=== PATIENT | female | born 1940 | race Caucasian/White ===

== ENCOUNTER 2017-05-01 10:02 | Inpatient (IN) | payer MEDICARE, OTHER ==
[~2017-05-01] VITALS: Ht 157.5 cm; Wt 59.6 kg
[~2017-05-01 10:02] MED LIST: ACTOS45 MG; ALLEGRA180 MG; ATORVASTATIN CA40 MG; AVISTA; CALCIUM500 MG; GLUMETZA1000 MG; HYDROCHLOROTHIA25 MG; KLOR-CON 1010 MEQ; LISINOPRIL20 MG; METOPROLOL SUC200 MG; NAPROXEN500 MG; OSCAL ULTRA; [UNRECOGNIZED DRUG - OTHER]
[2017-05-01] MEDS ORDERED: PANTOPRAZOLE 40 MG 10ML VIAL IV STA (10:18)
[2017-05-01] MEDS ORDERED: SODIUM CHLORIDE 0.9% 1000ML 500 ML IV STA (10:18)
[2017-05-01] MEDS ORDERED: ALBUTEROL SULF 0.083% NEB SOLN 3 ML NEB NEB STA (10:18)
[2017-05-01] MEDS ORDERED: DEXTROSE 5%/0.45% SOD CHL 1,000 ML IV STA (10:18)
[2017-05-01] MEDS ORDERED: IPRATROPIUM BROMIDE 0.02% 2.5 ML NEB NEB STA (10:18)
[2017-05-01] MEDS ORDERED: PIPER-TAZ 3.375 GM 50 ML IV STA (10:18)
[2017-05-01] MEDS ORDERED: METOPROLOL TAR100 MG (11:05)
[2017-05-01] MEDS ORDERED: LASIX40 MG PO (11:05)
[2017-05-01] MEDS ORDERED: CLONIDINE HCL0.1 MG PO (11:05)
[2017-05-01 11:15] LABS: BASOPHILS % 0.1 % (0.0-1.0); HEMOGLOBIN 9.7 g/dL (12.0-16.0); LYMPHOCYTES # (AUTO) 0.3 (1.0-3.2); LYMPHOCYTES % 1.8 % (18.0-39.1); MEAN CORPUSCULAR HEMOGLOBIN 29.8 pg (28-32); MEAN CORPUSCULAR HGB CONC 31.3 g/dL (31-35); MEAN CORPUSCULAR VOLUME 95.4 fL (81-99); MONOCYTES # (AUTO) 3.1 (0.2-0.8); MONOCYTES % 16.3 % (4.4-11.3); NEUTROPHILS # (AUTO) 15.2 (2.1-6.9); NEUTROPHILS % 80.8 % (38.7-80.0); PLATELET COUNT 432 x10e3/uL (140-360); RED BLOOD COUNT 3.25 x10e6/uL (3.6-5.1); RED CELL DISTRIBUTION WIDTH 13.6 % (11.7-14.4)
[2017-05-01] MEDS ORDERED: SODIUM CHLORIDE 0.9% 1000ML 1,000 ML IV SCH ×2 (11:15→11:38)
[2017-05-01] MEDS ORDERED: SODIUM CHLORIDE 0.9% 500ML 500 ML ONE (11:19)
[2017-05-01 11:34] LABS: ALBUMIN 3.4 g/dL (3.5-5.0); ALBUMIN/GLOBULIN RATIO 0.9 (0.8-2.0); ANION GAP 17.8 mmol/L (8-16); CALCIUM 9.6 mg/dL (8.4-10.2); CREATININE, SERUM 1.29 mg/dL (0.57-1.11); MAGNESIUM 1.4 MG/DL (1.3-2.1); POTASSIUM 3.8 mmol/L (3.5-5.1)
--- NOTE | 2017-05-01 11:35 | Diagnostic Imaging Report ---
PROCEDURE: A single AP view of the chest. COMPARISON: None. INDICATIONS: RESPIRATORY DISTRESS FINDINGS: Lines/tubes: None. Lungs: The lungs are well inflated. Diffuse bilateral airspace opacities. Pleura: There is no pleural effusion or pneumothorax. Heart and mediastinum: The cardiomediastinal silhouette is enlarged. Bones: No acute bony abnormality. IMPRESSION: Diffuse bilateral airspace opacities, representing edema and/or pneumonia. Dictated by: Surjit Mirza M.D. on 05/01/2017 at 11:34 Electronically approved by: Surjit Mirza M.D. on 05/01/2017 at 11:34
[2017-05-01] MEDS ORDERED: ALBUTEROL SULF 0.083% NEB SOLN 3 ML NEB NEB SCH (11:45)
[2017-05-01] MEDS ORDERED: DEXTROSE 50% SYRINGE 50 ML IV PRN (11:45)
[2017-05-01] MEDS ORDERED: VANCOMYCIN 1GM/NS 250 ML 250 ML IV ONE (11:45)
[2017-05-01 11:53] LABS: CREATINE KINASE MB 2.1 ng/mL (0-5.0); THYROID STIMULATING HORMONE 0.554 uIU/mL (0.350-4.940)
[2017-05-01 11:54] LABS: INR 1.19; PROTHROMBIN TIME 14.2 seconds (11.9-14.5)
[2017-05-01 11:55] LABS: PARTIAL THROMBOPLASTIN TIME 27.3 seconds (23.8-35.5)
[2017-05-01] MEDS ORDERED: IPRATROPIUM BROMIDE 0.02% 2.5 ML NEB NEB SCH (12:00)
[2017-05-01 12:04] LABS: BAND NEUTROPHILS % (MANUAL) 5 %; LYMPHOCYTES % (MANUAL) 1 % (19-48); MONOCYTES % (MANUAL) 12 % (3.4-9.0); NEUTROPHILS % (MANUAL) 82 % (40-74)
[2017-05-01 12:06] LABS: PLATELET ESTIMATE ADEQUATE; PLATELET MORPHOLOGY COMMENT NORMAL; RBC MORPHOLOGY COMMENT NORMAL
--- OUTSIDE RECORDS SUMMARY | 2017-05-01 12:23 | XMS REPORT ---
Author Author [facility] Address Unknown Phone Unavailable Care Team Providers Care Sourcing Specialist Name Role Phone NOHEMY MAYORGA Unavailable Unavailable Problems This patient has no known problems. Allergies, Adverse Reactions, Alerts This patient has no known allergies or adverse reactions. Medications This patient has no known medications. Results Test Description Test Time Test Comments Text Results Atomic Results Result Comments CHEST SINGLE (PORTABLE) [place] [address] Patient Name: AL CHARLES MR #: [id number] : 1940 Age/Sex: 76/F Req #: [id number] Adm Physician: Ordered by: NOHEMY MAYORGA MD, MD Report #: [id number] Location: ER Room/Bed: Procedure: [id number] DX/CHEST SINGLE (PORTABLE) Exam Date: 05/01/17 Exam Time: 1115 REPORT STATUS: Signed PROCEDURE: A single AP view of the chest. COMPARISON: None. INDICATIONS: RESPIRATORY DISTRESS FINDINGS: Lines/tubes: None. Lungs: The lungs are well inflated. Diffuse bilateral airspace opacities. Pleura: There is no pleural effusion or pneumothorax. Heart and mediastinum: The cardiomediastinal silhouette is enlarged. Bones: No acute bony abnormality. IMPRESSION: Diffuse bilateral airspace opacities, representing edema and/or pneumonia. Dictated by: Surjit Mirza M.D. on 05/01/2017 at 11:34 Electronically approved by: Surjit Mirza M.D. on 05/01/2017 at 11:34 Dictated By: SURJIT MIRZA MD 1134 Transcribed By: DO on 05/01/17 1134 COPY TO: NOHEMY MAYORGA
[2017-05-01] MEDS: PIPER-TAZ 3.375 GM 50 ML IV SCH ×2 (12:24→17:50)
[2017-05-01 12:27] LABS: BILIRUBIN,URINE NEGATIVE (NEGATIVE); KETONES,URINE NEGATIVE (NEGATIVE); LEUKOCYTE ESTERASE ,URINE 2+ (NEGATIVE); NITRITE,URINE NEGATIVE (NEGATIVE); URINE UROBILINOGEN 0.2 mg/dL (0.2 - 1)
[2017-05-01 12:28] LABS: CLARITY,URINE CLOUDY (CLEAR); COLOR,URINE YELLOW (YELLOW); PROTEIN,URINE DIPSTICK 1+ (NEGATIVE)
[2017-05-01] MEDS: FUROSEMIDE INJ 10 MG/ML 4 ML VIAL IV SCH ×2 (12:32→21:08)
--- NOTE | 2017-05-01 12:58 | Diagnostic Imaging Report ---
PROCEDURE: CT CHEST WITHOUT CONTRAST CT scan of the chest WITHOUT intravenous contrast, using standard protocol. TECHNIQUE: The chest was scanned utilizing a multidetector helical scanner from the apex to the level of the adrenal glands. No IV contrast was administered. Coronal and sagittal multiplanar reformations were obtained. COMPARISON: Chest x-ray of the same day. INDICATIONS: RESPIRATORY DISTRESS, ABDOMINAL TENDERNESS FINDINGS: Lines/tubes: None. Lungs, pleura, and Airways: Small right pleural effusion. Multifocal bilateral airspace opacities, more severe in right upper and lower lobes. Airways are patent. Heart and mediastinum: Multiple right lobe thyroid nodules. Mediastinal lymphadenopathy. For example 1.8 cm paratracheal lymph node. No axillary lymphadenopathy. Cardiomegaly. Atherosclerotic calcification of thoracic aorta and coronary arteries. Soft tissues: Normal. Abdomen: See dedicated abdomen CT report. Bones: No acute osseous abnormality. IMPRESSION: 1. Multifocal bilateral lung airspace opacities, concerning for multifocal pneumonia and less likely edema. 2. Small right pleural effusion. 3. Mediastinal lymphadenopathy, likely reactive. 4. Multiple thyroid nodules. Recommend correlation with nonurgent thyroid ultrasound. Dictated by: Surjit Mirza M.D. on 05/01/2017 at 12:57 Electronically approved by: Surjit Mirza M.D. on 05/01/2017 at 12:57
[2017-05-01] MEDS: IPRATROPIUM BROMIDE 0.02% 2.5 ML NEB NEB SCH ×2 (13:00→20:30)
--- NOTE | 2017-05-01 13:00 | History and Physical ---
CHIEF COMPLAINT: Low oxygen level and shortness of breath. HISTORY OF PRESENT ILLNESS: This is a 76-year-old white woman who was transferred from a local shelter, namely [facility], to [facility] Emergency Room because of hypoxia and worsening shortness of breath. In the emergency room, the patient was found to have a white blood cell count of 18,800 with 81% segmented neutrophils. The patient's hemoglobin was 9.7 g per dL. The patient was found to have a B-type natriuretic peptide level of 444. The patient's BUN and creatinine were 37 and 1.21 respectively. The patient had an elevated lactic acid level of 21.6. Chest x-ray performed in the emergency room revealed enlarged cardiomediastinal silhouette as well as diffuse bilateral airspace opacities. The patient was admitted for further evaluation and treatment. REVIEW OF SYSTEMS GENERAL: The patient has been more confused and short of breath over the last 2 days according to the shelter staff. Weight has been stable, though. HEENT: No headache. No visual changes. CARDIOVASCULAR/RESPIRATORY: Worsening shortness of breath and cough for the last 2 days according to shelter staff. GI: No nausea or vomiting. : No complaint of urinary tract infection. NEUROMUSCULAR: The patient is bedbound and has baseline dementia. ALLERGIES: NO KNOWN DRUG ALLERGIES. PAST MEDICAL HISTORY 1. Chronic diastolic congestive heart failure. 2. Hypertensive heart disease. 3. Stage-3 chronic kidney disease. 4. Dementia. 5. Hyperlipidemia. 6. Type-2 diabetes mellitus. FAMILY HISTORY: Noncontributory. SURGICAL HISTORY: Unknown. SOCIAL HISTORY: This woman is single. She lives in a local shelter, namely [facility]. MEDICATIONS 1. Eliquis 2.5 b.i.d. 2. Seroquel 25 mg qam and 50 mg qhs. 3. Clonidine 0.1 mg t.i.d. p.r.n. high blood pressure. 4. Claritin 10 mg daily. 5. Furosemide 40 mg daily. 6. Hydralazine 100 mg t.i.d. 7. Lisinopril 40 mg b.i.d. 8. Lantus insulin 10 units b.i.d. 9. Metoprolol tartrate 100 mg t.i.d. 10. Verapamil ER 240 g daily. 11. Ativan 0.5 mg daily as needed. 12. Potassium chloride 20 mEq daily. 13. Ferrous sulfate 325 mg b.i.d. 14. Humulin-R insulin sliding scale. 15. Lactulose 10 grams b.i.d. 16. Clonidine 0.3 mg t.i.d. scheduled. PHYSICAL EXAMINATION GENERAL: She is lethargic, minimally responsive. She is tachypneic. VITAL SIGNS: Blood pressure 200/90, pulse 98, respiratory rate 24, oxygen saturation 78% on room air. On nonrebreather, she is 93%. Temperature 96.9. Height 5 feet 2 inches, weight 130 pounds, calculated body mass index 23. INTEGUMENT: Skin is warm and dry. No pallor, jaundice or diaphoresis. The patient has erythematous scaly rash in the bilateral hands consistent with psoriatic plaques. HEENT: Anicteric sclerae with dry mucous membranes. NECK: Supple. The patient has evidence of jugular venous distention. CARDIOVASCULAR: Distant heart sounds. Tachycardic heart rate, regular rhythm. The patient has S3 gallop. LUNGS: The patient has pronounced crackles and rhonchi in bilateral lung watts, worse on the right. ABDOMEN: Soft. Normal bowel sounds. Nontender. EXTREMITIES: No edema or deformity. DIAGNOSES 1. Sepsis secondary to bilateral pneumonia, likely gram-negative augie. 2. Gzepb-hc-bcwjvvf renal failure. 3. Dementia. 4. Uedce-tn-dejhnrg diastolic congestive heart failure. 5. Hypertensive heart disease. 6. Type-2 diabetes mellitus. 7. Do not resuscitate code status. PLAN 1. Will honor the patient's DNR code status. 2. Will check urine for infection. 3. Follow urine and blood cultures. 4. Continue intravenous antibiotics. 5. Will stop intravenous fluids since the patient has acute congestive heart failure. 6. Overall guarded prognosis. I spent 40 minutes in the care of this patient. Job#: [id number] GETACHEW GARCIA
[2017-05-01 13:03] LABS: WBC,URINE (MAN) 21-50 /HPF (0-5)
[2017-05-01 13:04] LABS: BACTERIA,URINE MANY /HPF; EPITHELIAL CELLS,URINE FEW /LPF; RBC,URINE 0-5 /HPF (0-5); TRANSITIONAL EPI CELLS,URINE FEW
--- NOTE | 2017-05-01 13:14 | Diagnostic Imaging Report ---
PROCEDURE: CT ABDOMEN AND PELVIS WITHOUT CONTRAST TECHNIQUE: The abdomen and pelvis were scanned utilizing a multidetector helical scanner from the diaphragm to the lesser trochanter. No IV contrast was administered. Coronal and sagittal multiplanar reformations were obtained. COMPARISON: None. INDICATIONS: RESPIRATORY DISTRESS, ABDOMINAL TENDERNESS FINDINGS: ABSENCE OF INTRAVENOUS CONTRAST DECREASES SENSITIVITY FOR DETECTION OF FOCAL LESIONS AND VASCULAR PATHOLOGY. LOWER THORAX: Please see dedicated chest CT report. HEPATOBILIARY: Unenhanced liver is unremarkable. Cholecystectomy. Mild common bile duct distention, likely due to postcholecystectomy reservoir effects. SPLEEN: No splenomegaly. PANCREAS: No focal masses or ductal dilatation. ADRENALS: Indeterminate approximately 2.4 cm left atrial nodule. No right adrenal nodule. KIDNEYS/URETERS: No hydronephrosis or stones. PELVIC ORGANS/BLADDER: Bladder wall thickening. Penaloza catheter in place. Air in bladder, likely from instrumentation. Hysterectomy. PERITONEUM / RETROPERITONEUM: No free air. Trace pelvic free fluid. LYMPH NODES: No lymphadenopathy. VESSELS: Severe atherosclerotic disease of the peripheral vessels. No abdominal aortic aneurysm. GI TRACT: No evidence of bowel obstruction. Large amount of stool within redundant sigmoid colon as well as rectal fecal impaction. There is wall thickening of the remainder of the colon. Appendix is not visualized. BONES AND SOFT TISSUES: Degenerative changes of lumbar spine. There is mild compression deformity of L5 vertebral body superior endplate of indeterminate age. Degenerative changes of the hip joints. Mild anasarca. Small fat containing right inguinal hernia. IMPRESSION: 1. Limited study without intravenous contrast. 2. Large amount of stool within the redundant sigmoid colon as well as rectal fecal impaction. 3. Colonic wall thickening, concerning for infectious/inflammatory process like colitis. 4. Age indeterminate L5 vertebral body superior endplate mild compression deformity. 5. Indeterminate left adrenal nodule can be further evaluated with nonurgent adrenal protocol CT. Dictated by: Surjit Mirza M.D. on 05/01/2017 at 13:13 Electronically approved by: Surjit Mirza M.D. on 05/01/2017 at 13:13
[2017-05-01] MEDS: ALBUTEROL SULF 0.083% NEB SOLN 3 ML NEB NEB SCH ×2 (15:00→20:30)
[2017-05-01 15:06] VITALS: BP 227/105
[2017-05-01] MEDS ORDERED: LACTULOSE SYRUP 20 GM/30 ML UDC PO PRN (15:30)
[2017-05-01] MEDS: LABETALOL HCL 5 MG/ML 20ML VIAL IV PRN (15:49)
[2017-05-01 16:03] VITALS: BP 225/105
[2017-05-01 16:13] LABS: ABG HCO3 22 mmol/L (23-28); ABG PCO2 33 mmHg (41-51); ABG PH 7.42 (7.31-7.41); ABG PO2 127 mmHg (80-105)
[2017-05-01] MEDS: INSULIN REGULAR, HUMAN 100 UNIT/1 ML 3ML VIAL SQ SCH ×2 (16:29→22:00)
[2017-05-01 16:30] VITALS: BP 225/105
[2017-05-01] MEDS ORDERED: FAMOTIDINE 20 MG/2 ML VIAL IV SCH (17:00)
[2017-05-01 17:07] VITALS: BP 175/74
[2017-05-01] MEDS: FAMOTIDINE 10MG/ML 20ML VIAL IV SCH (17:50)
[2017-05-01] MEDS ORDERED: MINERAL OIL 132 ML BTL PR ONE (18:00)
--- NOTE | 2017-05-01 18:30 | Consultation ---
DATE OF CONSULTATION: May 01, 2017 PULMONARY CONSULTATION A patient of Dr. Leon, Dr. Tamayo. A charming but unfortunate 76-year-old woman with history of dementia, admitted from [facility] with shortness of breath of sudden onset after eating her breakfast. History of chronic confusion, history of congestive heart failure, atrial fibrillation, dementia, hypertension, diabetes, chronic kidney disease. NO KNOWN ALLERGIES. Her medications include Lasix, metoprolol, clonidine, lisinopril, Apresoline, Atrovent, Lantus insulin, Seroquel, and apixaban. Nonsmoker. Uncertain what kind of work she did. She has had cataract surgery. Was apparently designated a DNR. Has an khp-pi-vbnqjsqz and now an in-hospital DNR. PHYSICAL EXAMINATION GENERAL: She is well-developed, pale, slight. VITAL SIGNS: Temperature 99.3, pulse 115 and irregular, blood pressure 175/80. HEAD: Normocephalic, atraumatic. EYES: Extraocular movements intact. LUNGS: Bilateral rales and rhonchi, left greater than right. HEART: Regular rhythm. ABDOMEN: Nontender. EXTREMITIES: Rash on the hands suspicious for psoriasis, most likely contact dermatitis. Her CAT scan reveals significant bilateral infiltrates, adenopathy, thyroid nodules, and small right pleural effusion. IMPRESSION: One of 1. Aspiration pneumonia. 2. Constipation. PLAN: Therapy of healthcare-acquired pneumonia and aspiration, constipation. of current antibiotic therapy with vancomycin and Zosyn. Check a vancomycin level. Consider changing the femoral line to peripheral line. IMCU care. BiPAP if needed. Patient is not to be intubated. Will continue anticoagulation. Speech therapy evaluation. Thank you for this kind referral. Job#: [id number] EV
[2017-05-01 19:20] VITALS: BP 145/78
[2017-05-01] MEDS: ENOXAPARIN SOD INJ 40 MG/0.4 ML SYR SC SCH (21:08)
[2017-05-01] MEDS: VANCOMYCIN 1GM/NS 250 ML 250 ML IV SCH (21:08)
[2017-05-01 21:52] LABS: CREATINE KINASE MB 2.3 ng/mL (0-5.0)
[2017-05-01 22:00] VITALS: BP 166/78
[2017-05-01] MEDS: LORAZEPAM 0.5 MG TAB PO PRN (22:45)
[2017-05-02] VITALS (8 sets, daily range): BP systolic 113–181; BP diastolic 72–97
[2017-05-02] MEDS: IPRATROPIUM BROMIDE 0.02% 2.5 ML NEB NEB SCH ×4 (00:15→19:00)
[2017-05-02] MEDS: ALBUTEROL SULF 0.083% NEB SOLN 3 ML NEB NEB SCH ×4 (00:15→14:27)
[2017-05-02] MEDS: PIPER-TAZ 3.375 GM 50 ML IV SCH ×4 (00:30→17:55)
[2017-05-02] MEDS: LABETALOL HCL 5 MG/ML 20ML VIAL IV PRN ×2 (01:30→15:05)
[2017-05-02] MEDS ORDERED: METOPROLOL SUCCINATE 25 MG TAB XL PO STA (03:20)
[2017-05-02] MEDS ORDERED: LORAZEPAM INJ 2 MG/ML VIAL IV STA (03:20)
[2017-05-02] MEDS ORDERED: LORAZEPAM INJ 2 MG/ML VIAL IV PRN (03:30)
[2017-05-02] MEDS ORDERED: HALOPERIDOL LACTATE 5 MG/ML VIAL IV STA (04:41)
[2017-05-02] MEDS ORDERED: METOPROLOL TARTRATE INJ 1 MG/ML VIAL IV ONE (04:45)
--- NOTE | 2017-05-02 06:34 | Diagnostic Imaging Report ---
CHEST SINGLE (PORTABLE), 05/02/2017 5:00 AM Technique: CHEST SINGLE (PORTABLE) Comparison: 05/01/2017 Clinical history: Pneumonia Findings: See Impression Impression: 1. Stable cardiomediastinal silhouette. 2. Persistent extensive bilateral pulmonary opacities in keeping with pneumonia. Signed by: Dr Kalani Franks MD on 05/02/2017 6:30 AM
[2017-05-02 06:59] LABS: BASOPHILS % 0.1 % (0.0-1.0); EOSINOPHILS % 0.1 % (0.0-6.0); HEMATOCRIT 25.2 % (34.2-44.1); LYMPHOCYTES # (AUTO) 0.8 (1.0-3.2); LYMPHOCYTES % 3.9 % (18.0-39.1); MEAN CORPUSCULAR HEMOGLOBIN 30.4 pg (28-32); MEAN CORPUSCULAR HGB CONC 31.3 g/dL (31-35); MEAN CORPUSCULAR VOLUME 96.9 fL (81-99); MONOCYTES # (AUTO) 2.5 (0.2-0.8); MONOCYTES % 13.1 % (4.4-11.3); NEUTROPHILS # (AUTO) 15.6 (2.1-6.9); NEUTROPHILS % 80.7 % (38.7-80.0); PLATELET COUNT 327 x10e3/uL (140-360); RED CELL DISTRIBUTION WIDTH 13.9 % (11.7-14.4)
[2017-05-02 07:09] LABS: HEMOGLOBIN 7.9 g/dL (12.0-16.0)
[2017-05-02 07:24] LABS: ALBUMIN 3.2 g/dL (3.5-5.0); ALBUMIN/GLOBULIN RATIO 0.9 (0.8-2.0); ANION GAP 18.1 mmol/L (8-16); CALCIUM 9.5 mg/dL (8.4-10.2); CREATININE, SERUM 1.66 mg/dL (0.57-1.11); POTASSIUM 4.1 mmol/L (3.5-5.1)
[2017-05-02] MEDS: INSULIN REGULAR, HUMAN 100 UNIT/1 ML 3ML VIAL SQ SCH ×4 (07:30→21:00)
[2017-05-02 07:45] LABS: CREATINE KINASE MB 3.2 ng/mL (0-5.0)
[2017-05-02] MEDS ORDERED: VERAPAMIL HCL 180 MG TBER PO SCH (09:00)
[2017-05-02] MEDS: FAMOTIDINE 10MG/ML 20ML VIAL IV SCH (09:15)
[2017-05-02] MEDS: LORAZEPAM 0.5 MG TAB PO PRN (09:15)
[2017-05-02] MEDS: METOPROLOL SUCCINATE 25 MG TAB XL PO SCH ×2 (09:16→16:47)
[2017-05-02] MEDS: ENOXAPARIN SOD INJ 40 MG/0.4 ML SYR SC SCH ×2 (09:16→21:45)
[2017-05-02] MEDS: FUROSEMIDE INJ 10 MG/ML 4 ML VIAL IV SCH (09:16)
[2017-05-02] MEDS: HYDROCORTISONE 2.5% CREAM 30GM TUBE TOP SCH ×2 (09:16→16:47)
[2017-05-02] MEDS: VERAPAMIL HCL 240 MG TABSR PO SCH (09:16)
[2017-05-02] MEDS: VANCOMYCIN 1GM/NS 250 ML 250 ML IV SCH ×3 (09:16→21:45)
[2017-05-02 11:14] LABS: BAND NEUTROPHILS % (MANUAL) 1 %; LYMPHOCYTES % (MANUAL) 5 % (19-48); MONOCYTES % (MANUAL) 11 % (3.4-9.0); MYELOCYTES % (MANUAL) 1 % (0-0); NEUTROPHILS % (MANUAL) 82 % (40-74); PLATELET ESTIMATE ADEQUATE; PLATELET MORPHOLOGY COMMENT NORMAL; RBC MORPHOLOGY COMMENT NORMAL
[2017-05-02] MEDS: HALOPERIDOL LACTATE 5 MG/ML VIAL IV PRN (12:31)
[2017-05-02] MEDS ORDERED: SODIUM CHLORIDE 0.9% 1000ML 1,000 ML IV SCH (15:15)
[2017-05-02] MEDS ORDERED: AMIODARONE HCL 100 ML IV ONE (17:29)
[2017-05-02] MEDS ORDERED: AMIODARONE HCL 150MG 100 ML IV ONE (17:30)
[2017-05-02] MEDS ORDERED: AMIODARONE HCL INJ 150MG/3ML IV SCH (19:15)
[2017-05-03] VITALS (10 sets, daily range): BP systolic 111–191; BP diastolic 80–123
[2017-05-03] MEDS: IPRATROPIUM BROMIDE 0.02% 2.5 ML NEB NEB SCH ×4 (00:26→19:20)
[2017-05-03] MEDS: PIPER-TAZ 3.375 GM 50 ML IV SCH ×3 (00:56→12:48)
[2017-05-03] MEDS ORDERED: DIGOXIN INJ 0.25 MG/ML 2 ML AMP IV ONE ×2 (02:30→03:20)
[2017-05-03 06:24] LABS: BASOPHILS % 0.1 % (0.0-1.0); HEMATOCRIT 26.6 % (34.2-44.1); HEMOGLOBIN 8.1 g/dL (12.0-16.0); LYMPHOCYTES # (AUTO) 0.5 (1.0-3.2); MEAN CORPUSCULAR HEMOGLOBIN 30.6 pg (28-32); MEAN CORPUSCULAR HGB CONC 30.5 g/dL (31-35); MEAN CORPUSCULAR VOLUME 100.4 fL (81-99); MONOCYTES # (AUTO) 3.3 (0.2-0.8); MONOCYTES % 18.6 % (4.4-11.3); NEUTROPHILS # (AUTO) 13.4 (2.1-6.9); NEUTROPHILS % 75.6 % (38.7-80.0); PLATELET COUNT 293 x10e3/uL (140-360); RED BLOOD COUNT 2.65 x10e6/uL (3.6-5.1); RED CELL DISTRIBUTION WIDTH 14.2 % (11.7-14.4)
[2017-05-03 06:49] LABS: ANION GAP 25.4 mmol/L (8-16); CALCIUM 9.1 mg/dL (8.4-10.2); CREATININE, SERUM 2.36 mg/dL (0.57-1.11); POTASSIUM 4.4 mmol/L (3.5-5.1)
[2017-05-03] MEDS: INSULIN REGULAR, HUMAN 100 UNIT/1 ML 3ML VIAL SQ SCH ×4 (07:30→20:15)
[2017-05-03] MEDS: METOPROLOL SUCCINATE 25 MG TAB XL PO SCH ×2 (08:29→15:48)
[2017-05-03] MEDS: VERAPAMIL HCL 240 MG TABSR PO SCH (08:29)
[2017-05-03] MEDS: ENOXAPARIN SOD INJ 40 MG/0.4 ML SYR SC SCH ×2 (08:32→20:39)
[2017-05-03] MEDS: HYDROCORTISONE 2.5% CREAM 30GM TUBE TOP SCH ×2 (08:32→16:16)
[2017-05-03] MEDS: VANCOMYCIN 1GM/NS 250 ML 250 ML IV SCH (09:00)
[2017-05-03] MEDS: LABETALOL HCL 5 MG/ML 20ML VIAL IV PRN (10:52)
[2017-05-03] MEDS ORDERED: AMIODARONE HCL 150MG 100 ML IV SCH (12:30)
[2017-05-03] MEDS: SODIUM CHLORIDE 0.9% 1000ML 1,000 ML IV SCH (13:40)
[2017-05-03 13:59] LABS: BAND NEUTROPHILS % (MANUAL) 3 %; LYMPHOCYTES % (MANUAL) 5 % (19-48); MONOCYTES % (MANUAL) 14 % (3.4-9.0); MYELOCYTES % (MANUAL) 1 % (0-0); NEUTROPHILS % (MANUAL) 75 % (40-74); PLATELET ESTIMATE ADEQUATE; PLATELET MORPHOLOGY COMMENT NORMAL; RBC MORPHOLOGY COMMENT NORMAL
[2017-05-03] MEDS: METOPROLOL TARTRATE INJ 1 MG/ML VIAL IV PRN (14:30)
[2017-05-03] MEDS ORDERED: ACETAMINOPHEN 1000 MG/100 ML IV PRN (15:45)
[2017-05-03] MEDS: PIPERACILLIN/TAZO 2.25 GM 50 ML IV SCH (20:40)
--- NOTE | 2017-05-03 21:36 | Consultation ---
DATE OF CONSULTATION: REASON FOR CONSULTATION: Sepsis. HISTORY OF PRESENT ILLNESS: This patient who is a 76-year-old white female who I have seen before in an outpatient setting. The patient who is from a [facility], she is a DNR. Patient has been getting progressively worse. She presented this time with hypoxemia, altered mental status, and shortness of breath. In the emergency room, she was evaluated. She was found to have white count of 18,000, 81% segs, her hemoglobin was 9.7. Her BNP was 444. BUN and creatinine were 37/1.21. Patient had chest x-ray that showed enlarged heart, diffuse bilateral air opacity. Patient was admitted. The patient does not really provide any meaningful information. She does have underlying history of dementia. She does have also history of congestive heart failure. Patient was started on antibiotic piperacillin-tazobactam and vancomycin. However, her condition is not improving. She is lethargic, noncommunicative. I also suspect fever, so infectious disease was consulted today. When I saw the patient, there is no family and no friends at the bedside, and she does not provide information. PAST MEDICAL HISTORY: Congestive heart failure, hypertension, chronic kidney disease stage 3, dementia, hyperlipidemia, diabetes mellitus type 2. PAST SURGICAL HISTORY: Could not be obtained. MEDICATION AT HOME: She is on Eliquis, Seroquel, clonidine, Claritin, furosemide, hydralazine, lisinopril, insulin, metoprolol, verapamil, Ativan, potassium, iron sulfate. Dosage was checked, medication list reviewed. Laboratory data reviewed. REVIEW OF SYSTEMS: It is hard to obtain, patient is nonverbal. Patient is currently on the floor. She is a DNR. She has been seen by critical care. LABORATORY DATA: Also reviewed. Her urine is showing E. coli, which was resistant only to Bactrim and ciprofloxacin and Levaquin. Her white count is 17.75, hemoglobin 8.1, her platelet is 293,000. Her sodium 153, potassium 4.4, creatinine of 2.36. PHYSICAL EXAMINATION: GENERAL: She is nonverbal, does not seem to be in acute distress. VITALS: Stable, currently afebrile. Does not follow any commands. HEENT: Normocephalic. CHEST: Few rhonchi bilateral. COR: S1 and S2. No S3, S4, or murmur. ABDOMEN: Soft. Bowel sounds present. No tenderness. EXTREMITIES: No edema. IMPRESSION: 1. Sepsis, concern about aspiration pneumonia, community-acquired. 2. Chronic kidney disease, probably component of acute tubular necrosis from sepsis. 3. Dementia. 4. Congestive heart failure. 5. Hyperlipidemia. 6. Diabetes mellitus. 7. Elevated vancomycin level. I would recommend to hold vancomycin, recheck level in the morning. I will change her Zosyn to 2.25 q.8. 8. Prognosis is extremely poor. Patient is do not resuscitate. 9. Urinary tract infection and bacteriuria may be. 10. Sepsis and pneumonia present on admission. Will follow with you. Thank you. Job#: [id number]
[2017-05-04] VITALS (8 sets, daily range): BP systolic 87–133; BP diastolic 51–88
[2017-05-04] MEDS: HALOPERIDOL LACTATE 5 MG/ML VIAL IV PRN (00:59)
[2017-05-04] MEDS: SODIUM CHLORIDE 0.9% 1000ML 1,000 ML IV SCH ×3 (01:13→19:00)
[2017-05-04] MEDS: IPRATROPIUM BROMIDE 0.02% 2.5 ML NEB NEB SCH ×5 (01:50→23:50)
[2017-05-04] MEDS: METOPROLOL TARTRATE INJ 1 MG/ML VIAL IV PRN ×3 (02:06→16:34)
[2017-05-04] MEDS: PIPERACILLIN/TAZO 2.25 GM 50 ML IV SCH ×2 (05:28→14:04)
[2017-05-04] MEDS: INSULIN REGULAR, HUMAN 100 UNIT/1 ML 3ML VIAL SQ SCH ×4 (08:00→21:00)
[2017-05-04] MEDS: METOPROLOL SUCCINATE 25 MG TAB XL PO SCH ×2 (09:00→16:23)
[2017-05-04] MEDS ORDERED: VANCOMYCIN 1GM/NS 250 ML 250 ML IV SCH (09:00)
[2017-05-04] MEDS ORDERED: DIGOXIN INJ 0.25 MG/ML 2 ML AMP IV ONE (09:00)
[2017-05-04] MEDS: VERAPAMIL HCL 240 MG TABSR PO SCH (09:00)
[2017-05-04] MEDS: ENOXAPARIN SOD INJ 40 MG/0.4 ML SYR SC SCH ×2 (09:40→21:49)
[2017-05-04] MEDS: HYDROCORTISONE 2.5% CREAM 30GM TUBE TOP SCH ×2 (09:40→17:00)
[2017-05-04] MEDS ORDERED: CEFTRIAXONE SOD 1 GM VIAL IM SCH (14:26)
--- NOTE | 2017-05-04 14:45 | Progress Note ---
DATE: SUBJECTIVE: Ms. Aj is still lethargic and nonverbal. The patient remains very ill. OBJECTIVE VITALS: Temperature 98.9, heart rate 179, respirations 39, blood pressure 110/88. HEENT: Normocephalic. Not pale nor icteric. NECK: Supple. No JVD. No lymphadenopathy. CHEST: A few rhonchi bilateral. COR: S1 and S2. No S3, S4, or murmur. ABDOMEN: Soft. Bowel sounds present. No tenderness. EXTREMITIES: No edema. LABS: Her white count today is 17.75, which is down from 19.3. Hemoglobin 8.1. Sodium 153, potassium 4.4, creatinine 2.36, glucose 203. IMPRESSION 1. Sepsis. Prognosis is very guarded to poor. 2. Chronic kidney disease with acute tubular necrosis. 3. Hypernatremia. 4. Diabetes mellitus. 5. Component of congestive heart failure. 6. Urinary tract infection with Escherichia coli, which was resistant only to Cipro and levofloxacin. She has continued to be on Zosyn, insulin, Lopressor, Lovenox, vancomycin, amiodarone. The plan is to continue the above antibiotic. The prognosis here remains poor. Underlying dementia. Will change her to Rocephin 1 g daily. Will discontinue vancomycin for now. Recheck CBC and chem panel. Job#: [id number]
[2017-05-04] MEDS: METRONIDAZOLE 500MG/NS 100ML 100 ML IV SCH (21:49)
[2017-05-05] VITALS (7 sets, daily range): BP systolic 105–198; BP diastolic 36–69
[2017-05-05] MEDS: SODIUM CHLORIDE 0.9% 1000ML 1,000 ML IV SCH ×2 (01:55→15:00)
[2017-05-05] MEDS: METRONIDAZOLE 500MG/NS 100ML 100 ML IV SCH ×3 (06:06→22:28)
[2017-05-05] MEDS: IPRATROPIUM BROMIDE 0.02% 2.5 ML NEB NEB SCH ×3 (07:42→20:15)
[2017-05-05] MEDS: INSULIN REGULAR, HUMAN 100 UNIT/1 ML 3ML VIAL SQ SCH ×4 (08:00→20:54)
[2017-05-05] MEDS: VERAPAMIL HCL 240 MG TABSR PO SCH (09:00)
[2017-05-05] MEDS: METOPROLOL SUCCINATE 25 MG TAB XL PO SCH ×2 (09:00→17:00)
[2017-05-05] MEDS ORDERED: CEFTRIAXONE SOD 1 GM VIAL IM ONE (09:00)
[2017-05-05] MEDS: DIGOXIN INJ 0.25 MG/ML 2 ML AMP IV SCH (09:07)
[2017-05-05] MEDS: CEFTRIAXONE SOD 1 GM VIAL IV SCH (09:07)
[2017-05-05] MEDS: HYDROCORTISONE 2.5% CREAM 30GM TUBE TOP SCH ×2 (09:08→17:00)
[2017-05-05] MEDS: ENOXAPARIN SOD INJ 40 MG/0.4 ML SYR SC SCH ×2 (09:08→20:49)
[2017-05-05] MEDS: METOPROLOL TARTRATE INJ 1 MG/ML VIAL IV PRN (18:35)
[2017-05-05] MEDS ORDERED: CLONIDINE HCL 0.2 MG/24 HR 1 EA PATCH TOP SCH (22:00)
[2017-05-05] MEDS ORDERED: ACETAMINOPHEN 1000 MG/100 ML IV PRN (22:00)
[2017-05-06] VITALS (10 sets, daily range): BP systolic 105–198; BP diastolic 49–90
[2017-05-06] MEDS: SODIUM CHLORIDE 0.9% 1000ML 1,000 ML IV SCH ×3 (01:00→21:00)
[2017-05-06] MEDS: METRONIDAZOLE 500MG/NS 100ML 100 ML IV SCH ×3 (05:50→21:34)
[2017-05-06] MEDS: IPRATROPIUM BROMIDE 0.02% 2.5 ML NEB NEB SCH ×3 (07:00→19:40)
[2017-05-06] MEDS: VERAPAMIL HCL 240 MG TABSR PO SCH (09:00)
[2017-05-06] MEDS: METOPROLOL SUCCINATE 25 MG TAB XL PO SCH ×2 (09:00→21:00)
[2017-05-06] MEDS: ENOXAPARIN SOD INJ 40 MG/0.4 ML SYR SC SCH ×2 (10:15→21:00)
[2017-05-06] MEDS: HYDROCORTISONE 2.5% CREAM 30GM TUBE TOP SCH ×2 (10:15→21:00)
[2017-05-06] MEDS: INSULIN REGULAR, HUMAN 100 UNIT/1 ML 3ML VIAL SQ SCH ×4 (10:15→21:00)
[2017-05-06] MEDS: CEFTRIAXONE SOD 1 GM VIAL IV SCH (10:15)
[2017-05-06] MEDS: DIGOXIN INJ 0.25 MG/ML 2 ML AMP IV SCH (10:15)
[2017-05-07] VITALS: BP 189/119
[2017-05-07] MEDS: IPRATROPIUM BROMIDE 0.02% 2.5 ML NEB NEB SCH ×3 (01:00→20:00)
[2017-05-07] MEDS: METOPROLOL TARTRATE INJ 1 MG/ML VIAL IV PRN ×3 (01:05→18:46)
[2017-05-07 04:16] VITALS: BP 149/58
[2017-05-07] MEDS: METRONIDAZOLE 500MG/NS 100ML 100 ML IV SCH ×3 (06:00→21:07)
[2017-05-07 07:00] VITALS: BP 181/55
[2017-05-07] MEDS: INSULIN REGULAR, HUMAN 100 UNIT/1 ML 3ML VIAL SQ SCH ×4 (08:25→20:53)
[2017-05-07] MEDS: HYDROCORTISONE 2.5% CREAM 30GM TUBE TOP SCH ×2 (09:00→20:53)
[2017-05-07] MEDS: VERAPAMIL HCL 240 MG TABSR PO SCH (09:00)
[2017-05-07] MEDS: METOPROLOL SUCCINATE 25 MG TAB XL PO SCH ×2 (09:00→20:32)
[2017-05-07] MEDS ORDERED: SODIUM CHLORIDE 0.45% 1,000 ML IV SCH (09:15)
[2017-05-07 09:24] LABS: BASOPHILS % 0.2 % (0.0-1.0); HEMATOCRIT 29.8 % (34.2-44.1); HEMOGLOBIN 9.2 g/dL (12.0-16.0); LYMPHOCYTES # (AUTO) 1.5 (1.0-3.2); LYMPHOCYTES % 12.5 % (18.0-39.1); MEAN CORPUSCULAR HEMOGLOBIN 30.6 pg (28-32); MEAN CORPUSCULAR HGB CONC 30.9 g/dL (31-35); MONOCYTES # (AUTO) 1.8 (0.2-0.8); MONOCYTES % 14.8 % (4.4-11.3); NEUTROPHILS # (AUTO) 8.4 (2.1-6.9); NEUTROPHILS % 69.1 % (38.7-80.0); PLATELET COUNT 328 x10e3/uL (140-360); RED BLOOD COUNT 3.01 x10e6/uL (3.6-5.1); RED CELL DISTRIBUTION WIDTH 15.1 % (11.7-14.4)
[2017-05-07] MEDS: ENOXAPARIN SOD INJ 40 MG/0.4 ML SYR SC SCH ×2 (09:30→20:32)
[2017-05-07] MEDS: DIGOXIN INJ 0.25 MG/ML 2 ML AMP IV SCH (09:31)
[2017-05-07] MEDS: CEFTRIAXONE SOD 1 GM VIAL IV SCH (09:31)
[2017-05-07 09:57] LABS: ANION GAP 21.7 mmol/L (8-16); CALCIUM 8.1 mg/dL (8.4-10.2); CREATININE, SERUM 3.5 mg/dL (0.57-1.11); POTASSIUM 3.7 mmol/L (3.5-5.1)
[2017-05-07] MEDS: DEXTROSE 5% 1,000 ML IV SCH ×2 (10:45→20:30)
[2017-05-07 11:04] LABS: ANISOCYTOSIS SLIGHT; BURR CELLS SLIGHT; LYMPHOCYTES % (MANUAL) 10 % (19-48); MONOCYTES % (MANUAL) 7 % (3.4-9.0); MYELOCYTES % (MANUAL) 1 % (0-0); NEUTROPHILS % (MANUAL) 80 % (40-74); NUCLEATED RED BLOOD CELLS 5; PLATELET ESTIMATE ADEQUATE; PLATELET MORPHOLOGY COMMENT NORMAL; POIKILOCYTOSIS SLIGHT; RBC MORPHOLOGY COMMENT ABNORMAL
[2017-05-07 11:45] VITALS: BP 180/57
[2017-05-07] MEDS: INSULIN LISPRO 100 UNIT/1 ML 3ML VIAL SQ SCH ×2 (12:27→18:32)
[2017-05-07 15:20] VITALS: BP 125/63
--- NOTE | 2017-05-07 15:26 | Diagnostic Imaging Report ---
PROCEDURE: CHEST XRAY POST PROCEDURE COMPARISON: Patients [facility], DX, CHEST SINGLE (PORTABLE), 05/02/2017, 6:11. INDICATIONS: ng tube placement. FINDINGS: See conclusion. CONCLUSION: 1. Enteric tube in place with distal tip in the proximal fundus and side-port projecting just proximal to the GE junction. Further advancement is recommended. 2. Marked interval improvement in previously visualized bilateral interstitial and alveolar opacities. Mateo Vasquez M.D. Dictated by: Mateo Vasquez M.D. on 05/07/2017 at 15:26 Electronically approved by: Mateo Vasquez M.D. on 05/07/2017 at 15:26
[2017-05-07 20:00] VITALS: BP 178/84
[2017-05-08] VITALS: BP 169/89
[2017-05-08] MEDS: IPRATROPIUM BROMIDE 0.02% 2.5 ML NEB NEB SCH ×2 (00:45→06:45)
[2017-05-08 04:00] VITALS: BP 169/75
[2017-05-08] MEDS: METRONIDAZOLE 500MG/NS 100ML 100 ML IV SCH (05:55)
[2017-05-08] MEDS: INSULIN LISPRO 100 UNIT/1 ML 3ML VIAL SQ SCH ×3 (06:00→12:14)
[2017-05-08] MEDS: DEXTROSE 5% 1,000 ML IV SCH (06:12)
[2017-05-08 06:41] LABS: BASOPHILS % 0.1 % (0.0-1.0); EOSINOPHILS % 0.1 % (0.0-6.0); LYMPHOCYTES # (AUTO) 1.4 (1.0-3.2); MEAN CORPUSCULAR HEMOGLOBIN 30.4 pg (28-32); MEAN CORPUSCULAR HGB CONC 30.4 g/dL (31-35); MONOCYTES # (AUTO) 1.9 (0.2-0.8); MONOCYTES % 15.2 % (4.4-11.3); NEUTROPHILS # (AUTO) 8.8 (2.1-6.9); NEUTROPHILS % 70.9 % (38.7-80.0); PLATELET COUNT 292 x10e3/uL (140-360); RED CELL DISTRIBUTION WIDTH 15.5 % (11.7-14.4)
[2017-05-08 06:45] LABS: HEMOGLOBIN 7.9 g/dL (12.0-16.0)
[2017-05-08 07:14] LABS: ANION GAP 17.5 mmol/L (8-16); CALCIUM 7.9 mg/dL (8.4-10.2); CREATININE, SERUM 3.34 mg/dL (0.57-1.11); POTASSIUM 3.5 mmol/L (3.5-5.1)
[2017-05-08 07:27] LABS: LYMPHOCYTES % (MANUAL) 8 % (19-48); MONOCYTES % (MANUAL) 8 % (3.4-9.0); MYELOCYTES % (MANUAL) 1 % (0-0); NEUTROPHILS % (MANUAL) 83 % (40-74); NUCLEATED RED BLOOD CELLS 2
[2017-05-08 07:28] LABS: ANISOCYTOSIS SLIGHT; HYPOCHROMASIA MODERATE; RBC MORPHOLOGY COMMENT ABNORMAL
[2017-05-08 07:29] LABS: PLATELET ESTIMATE ADEQUATE; PLATELET MORPHOLOGY COMMENT NORMAL
[2017-05-08 07:30] LABS: POIKILOCYTOSIS SLIG
[2017-05-08] MEDS: INSULIN REGULAR, HUMAN 100 UNIT/1 ML 3ML VIAL SQ SCH ×2 (07:30→12:15)
[2017-05-08 08:00] VITALS: BP 146/67
[2017-05-08] MEDS: HYDROCORTISONE 2.5% CREAM 30GM TUBE TOP SCH (08:30)
[2017-05-08 09:00] VITALS: BP 146/67
[2017-05-08] MEDS: METOPROLOL SUCCINATE 25 MG TAB XL PO SCH (09:00)
[2017-05-08] MEDS: VERAPAMIL HCL 240 MG TABSR PO SCH (09:00)
[2017-05-08] MEDS: CEFTRIAXONE SOD 1 GM VIAL IV SCH (10:00)
[2017-05-08] MEDS: ENOXAPARIN SOD INJ 40 MG/0.4 ML SYR SC SCH (10:00)
[2017-05-08] MEDS: DIGOXIN INJ 0.25 MG/ML 2 ML AMP IV SCH (10:00)
== END 2017-05-08 14:40 | DRG 871 ==
LOC: ER 10:07 → ERHOLD 12:20 → MED/SURG2 14:35 → IMCU 19:12
DX: A41.9 Sepsis, unspecified organism (principal); J69.0 Pneumonitis due to inhalation of food and vomit; N17.0 Acute kidney failure with tubular necrosis; J96.91 Respiratory failure, unspecified with hypoxia; I50.33 Acute on chronic diastolic (congestive) heart failure; E87.0 Hyperosmolality and hypernatremia; I13.0 Hypertensive heart and chronic kidney disease with heart failure and stage 1 through stage 4 chronic kidney disease, or unspecified chronic kidney disease; N39.0 Urinary tract infection, site not specified; B96.20 Unspecified Escherichia coli [E. coli] as the cause of diseases classified elsewhere; N18.3 Chronic kidney disease, stage 3 (moderate); E11.22 Type 2 diabetes mellitus with diabetic chronic kidney disease; F03.90 Unspecified dementia, unspecified severity, without behavioral disturbance, psychotic disturbance, mood disturbance, and anxiety; Z66 Do not resuscitate; K59.00 Constipation, unspecified; E78.5 Hyperlipidemia, unspecified; R09.02 Hypoxemia; I48.91 Unspecified atrial fibrillation; Z79.01 Long term (current) use of anticoagulants; Z74.01 Bed confinement status; D64.9 Anemia, unspecified; R00.0 Tachycardia, unspecified; K52.9 Noninfective gastroenteritis and colitis, unspecified
CPT/HCPCS: 36415; 36555; 36600; 71045; 71250; 74176; 80048; 80053; 80202; 81001; 82550; 82553; 82805; 82948; 83605; 83690; 83735; 83880; 84443; 84484; 85025; 85610; 85730; 86850; 86900; 87040; 87086; 87186; 93005; 94640; 96360; 96361; 96367; 96372; 96374; 99285; J0696; J1160; J1630; J1650; J1940; J2060; J2543; J3370; J7030; J7040; J7070